=== PATIENT | female | born 1990 | race Caucasian/White ===

== ENCOUNTER 2018-04-13 17:09 | Emergency (ER) | payer MEDICAID ==
[~2018-04-13] VITALS: Ht 144.8 cm; Wt 60.3 kg
[2018-04-13 17:15] VITALS: BP_SYST 125
[2018-04-13] MEDS ORDERED: ONDANSETRON HCL 4 MG/2 ML VIAL IM ONE ×2 (18:00)
[2018-04-13] MEDS ORDERED: DIPHENOXYLATE HCL/ATROP SULF 2.5 MG TAB PO ONE (18:00)
[2018-04-13 18:21] VITALS: BP_SYST 125
== END 2018-04-13 18:21 | disposition home or self-care (01) ==
LOC: SED 17:09
DX: K52.9 Noninfective gastroenteritis and colitis, unspecified (principal); J45.909 Unspecified asthma, uncomplicated; Z90.49 Acquired absence of other specified parts of digestive tract; Z88.6 Allergy status to analgesic agent
CPT/HCPCS: 99283; J2405